=== PATIENT | male | born 1990 | race African-American/Black ===

== ENCOUNTER 2023-05-19 20:05 | Emergency (ER) | payer SELFPAY ==
[2023-05-19 20:10] VITALS: BP 115/75; PULSE 77; RESP 18; TEMP 98.9; BMI 36.2
[2023-05-19] MEDS: PENICILLIN G BENZATHINE 1,200,000 UNIT/2 ML PFS IM ONE (20:43)
[2023-05-19 20:53] LABS: BASO % 0.8 % (0-2.0); EOS % 2.1 % (0-4.5); HEMATOCRIT 44.7 % (35.4-49); HEMOGLOBIN 15.1 GM/dL (11.7-16.9); LYMPH % 40.6 % (8-40); MCH 28.7 pg (25.7-33.7); MCHC 33.8 g/dl (32.0-35.9); MEAN CELL VOLUME 84.9 fl (80-96); MEAN PLT VOLUME 8.8 fl (7.5-11.1); MONO % 7.4 % (3.8-10.2); NEUT % 49.1 % (42.8-82.8); PLATELET COUNT 224 10^3/uL (134-434); RBC 5.26 M/mm3 (4.00-5.60); RDW 13.2 % (11.9-15.9); WHITE BLOOD COUNT 6.3 K/mm3 (4.0-10.0)
[2023-05-19 20:54] LABS: PH,URINE 7.5 (5.0-8.0); URINE APPEARANCE CLEAR; URINE BILIRUBIN NEGATIVE (NEGATIVE); URINE COLOR YELLOW; URINE GLUCOSE (UA) NEGATIVE (NEGATIVE); URINE KETONE TRACE (NEGATIVE); URINE LEUK ESTERASE NEGATIVE (NEGATIVE); URINE NITRITE NEGATIVE (NEGATIVE); URINE PROTEIN NEGATIVE (NEGATIVE)
[2023-05-19 21:23] LABS: POTASSIUM 3.8 mmol/L (3.5-5.1)
[2023-05-19 21:25] LABS: BLOOD UREA NITROGEN 21.1 mg/dL (7-18); CALCIUM 8.9 mg/dL (8.5-10.1)
[2023-05-19 21:29] LABS: CREATININE 1.4 mg/dL (0.55-1.3)
== END 2023-05-19 21:05 | disposition home or self-care (01) ==
LOC: JERFT 20:05
DX: R10.2 Pelvic and perineal pain (principal); A64 Unspecified sexually transmitted disease; Z20.2 Contact with and (suspected) exposure to infections with a predominantly sexual mode of transmission
CPT/HCPCS: 36415; 80048; 81003; 85025; 86780; 87086; 87491; 87591; 87661; 99284-25